=== PATIENT | female | born 1965 | race African-American/Black ===

== ENCOUNTER 2016-03-20 19:14 | Emergency (ER) | payer OTHER ==
[2016-03-20 19:25] VITALS: BP 148/95
--- NOTE | 2016-03-20 19:45 | ED THROAT/DENTAL COMPLAINT ---
History of Present Illness General Chief Complaint: Sore Throat, Dental Pain Stated Complaint: THROAT PAIN Source: patient, old records Exam Limitations: no limitations Vital Signs & Intake/Output Vital Signs & Intake/Output Vital Signs Date Time Temp Pulse Resp B/P Pulse O2 O2 Flow FiO2 Ox Delivery Rate 03/20 1924 97.0 87 22 148/95 99 4.5L Allergies Coded Allergies: No Known Allergies (03/20/16) Reconcile Medications Brimonidine Tartrate/Timolol (Combigan Eye Drops) 0.2 %-0.5 % DROPS 1 DROP OP QPM BOTH EYES (Reported) Multivitamin (Multi-Day Vitamins) 1 EACH TABLET 1 TAB PO DAILY SUPPLEMENT ( Reported) Vitamin B Complex (B Complete) 1 EACH TABLET 1 TAB PO DAILY SUPPLEMENT ( Reported) Triage Note: PER PT EATING SOUP, THINK A THYME STALK IS STUCK IN THROAT, TRIED COUGHING BUT NO LUCK, NO ACUTE RESP DISTRESS.ONLY OCCURRED 1 HR AGO, NOTING SDOME BLOOD WHEN COUGHING Triage Nurses Notes Reviewed? yes Onset: Just prior to arrival Duration: minute(s):, constant, continues in ED Timing: recent history Injury Environment: home Severity: moderate Modifying Factors: Worsens With: other (SWALLOWING). Associated Symptoms: cough LMP (ages 10-50): post menopausal : No Patient currently breastfeeds: No HPI: [employer] patient was eating beef soup and felt something get stuck in her throat causing her to cough with foreign body sensation. There was a scanty amount of blood in the expectorant. She denies fever chills nausea vomiting diarrhea abdominal pain chest pain shortness of breath headache dysuria rash. Past History Travel History Traveled to [place] past 21 day No Medical History Any Pertinent Medical History? none Neurological: NONE EENT: NONE Cardiovascular: NONE Respiratory: NONE Gastrointestinal: NONE Hepatic: NONE Renal: NONE Musculoskeletal: NONE Psychiatric: NONE Endocrine: NONE Surgical History Surgical History: non-contributory Psychosocial History What is your primary language Par[place]ayan Tobacco Use: Never used Family History Hx Contributory? No Review of Systems Review of Systems Constitutional: Reports: no symptoms. EENTM: Reports: see HPI, throat pain. Respiratory: Reports: see HPI, cough. Cardiovascular: Reports: no symptoms. GI: Reports: no symptoms. Genitourinary: Reports: no symptoms. Musculoskeletal: Reports: no symptoms. Skin: Reports: no symptoms. Neurological/Psychological: Reports: no symptoms. Hematologic/Endocrine: Reports: no symptoms. Immunologic/Allergic: Reports: no symptoms. All Other Systems: Reviewed and Negative Physical Exam Physical Exam General Appearance: well developed/nourished, alert, awake, anxious, mild distress, obese Head: atraumatic, normal appearance Eyes: Bilateral: normal appearance, PERRL, EOMI. Ears: Bilateral: canal normal, Tympanic normal. 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 No Severe Sepsis Present: No Septic Shock Present: No Progress Differential Diagnosis: epiglottitis, pharyngeal for. body, stomatitis/ gingivitis, uvulitis Plan of Care: Orders Procedure Date/time Status XRY-SOFT TISSUE NECK 03/20 1936 Active Current Medications Sig/Jean Start time Last Medication Dose Stop Time Status Admin Diphenhydramine HCl 25 MG ONCE ONE 03/20 1944 UNVr (Benadryl) 03/20 1945 Prednisone 60 MG ONCE ONE 03/20 1944 UNVr 03/20 1945 Diagnostic Imaging: Viewed by Me: Radiology Read. Discussed w/RAD: Radiology Read. Radiology Impression: No metallic foreign body. Nonspecific calcific focus demonstrated within the soft tissues anterior to the C4 vertebral body, which is of questionable/doubtful clinical significance as this is located just cephalad to the origin of the esophagus. Departure Departure Time of Disposition: 2040 Disposition: HOME OR SELF CARE Condition: Stable Clinical Impression Primary Impression: Uvulitis Referrals: YUMI HIGUERA,PIYUSH Gutierrez Call for ENT follow up Departure Forms: Customer Survey General Discharge Information Prescriptions: Current Visit Scripts Prednisone 1 TAB PO BID #10 TAB Azithromycin (Zithromax) 1 DP PO AD #6 TAB 2 the first day followed by 1 for days 2-5 [Magic mouthwash] 5-10 ML PO Q4P PRN throat pain #270 ML 1:1:1 maalox, lidocaine, benadryl
[2016-03-20] MEDS ORDERED: MULTI-DAY VITA1 EACH PO (20:10)
[2016-03-20] MEDS ORDERED: COMBIGAN EYE DRO5 ML OP (20:10)
[2016-03-20] MEDS ORDERED: B COMPLETE1 EACH PO (20:11)
--- NOTE | 2016-03-20 20:29 | RADIOLOGY REPORT ---
EXAMINATION: XR SOFT TISSUE NECK CLINICAL INDICATION: Foreign body sensation while eating beef soup. COMPARISON: None. TECHNIQUE: AP and lateral views of the neck were obtained. FINDINGS: No prevertebral soft tissue swelling. No metallic foreign body is demonstrated. A nonspecific calcific focus is demonstrated within the soft tissues anterior to the C4 vertebral body, which is of questionable/doubtful clinical significance. Mild degenerative changes of the cervical spine. IMPRESSION: No metallic foreign body. Nonspecific calcific focus demonstrated within the soft tissues anterior to the C4 vertebral body, which is of questionable/doubtful clinical significance as this is located just cephalad to the origin of the esophagus. No prevertebral soft tissue swelling.
[2016-03-20] MEDS ORDERED: Magic mouthwash PO (20:44)
[2016-03-20] MEDS ORDERED: ZITHROMAX250 M2 PO (20:44)
[2016-03-20] MEDS ORDERED: PREDNISONE20 M1 PO (20:44)
== END 2016-03-20 21:09 ==
LOC: ERH 19:14
DX: K12.2 Cellulitis and abscess of mouth (principal)
CPT/HCPCS: 70360